=== PATIENT | male | born 2000 | race Caucasian/White ===

== ENCOUNTER 2025-07-12 10:04 | Emergency (ER) | payer BC ==
[~2025-07-12] VITALS: Ht 177.8 cm; Wt 100.0 kg
[2025-07-12 10:05] VITALS: O2SAT 95
[2025-07-12] MEDS: DIPHENHYDRAMINE 50MG/ML VIAL IV ONE (10:24)
[2025-07-12] MEDS: FAMOTIDINE 20MG/2ML VIAL IV ONE (10:24)
[2025-07-12] MEDS: EPINEPHRINE 1:1000 1 MG/ML AMP IM ONE (10:25)
[2025-07-12] MEDS: ONDANSETRON HCL 4MG/2ML INJ IV ONE (10:33)
[2025-07-12] MEDS: SODIUM CHLORIDE 0.9% 1,000 ML IV ONE (10:33)
[2025-07-12] MEDS: DEXAMETHASONE 10 MG/ML VIAL IV ONE (10:33)
[2025-07-12 10:36] LABS: BASOPHILS % 0.3 % (0.0-2.0); EOSINOPHILS % 2.9 % (0.0-5.0); HEMATOCRIT. 47.2 % (42.0-52.0); HEMOGLOBIN. 16.7 g/dL (14.0-18.0); LYMPHOCYTES % 42.5 % (20.0-50.0); MEAN PLATELET VOLUME 8.1 fl (7.4-10.4); MONOCYTES % 6.6 % (2.0-8.0); NEUTROPHILS % 47.7 % (40.0-76.0); PLATELET 323 x1000/uL (130-400); RED BLOOD CELL COUNT 5.77 mill/uL (4.7-6.1); RED CELL DISTRIBUTION WIDTH 13.7 % (11.6-14.6)
[2025-07-12 10:51] LABS: CREATININE 0.9 mg/dL (0.6-1.3); UREA NITROGEN BLOOD 10 mg/dL (9-23)
[2025-07-12 15:01] VITALS: BP 124/61; PULSE 87; RESP 18; TEMP 37; O2SAT 95
== END 2025-07-12 15:16 | disposition left against medical advice (07) ==
LOC: ER 10:20 → EDBEDREQSVC 12:36 → EDBEDREQ 12:36 → EDBEDREQTM 12:36 → ENRESERV 14:34 → CANBEDREQ 15:06 → ER 15:16
DX: T78.01XA Anaphylactic reaction due to peanuts, initial encounter (principal); Z91.010 Allergy to peanuts; Y92.89 Other specified places as the place of occurrence of the external cause
CPT/HCPCS: 80048; 85025; 36415; 71045; 93005; 96361; 96372; 96374; 96375; 99291; J1100; J1200; J3490; J1308; J2405; J7030; Z7610